=== PATIENT | female | born 1965 | race Caucasian/White ===

== ENCOUNTER 2017-07-10 11:28 | Emergency (ER) | payer BC ==
[~2017-07-10] VITALS: Ht 149.9 cm; Wt 72.6 kg
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
[2017-07-10 11:36] VITALS: BP 150/78
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
--- NOTE | 2017-07-10 11:53 | NUR ---
ambulatory to restroom with steady gait
--- NOTE | 2017-07-10 12:05 | NUR ---
pt to ct via wheelchair
--- NOTE | 2017-07-10 12:19 | NUR ---
returned from radiology
--- NOTE | 2017-07-10 13:08 | NUR ---
continues to denie pain, no headache or dizziness at this time---continues to wait for dispo
[2017-07-10 13:25] VITALS: BP 150/80
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
== END 2017-07-10 13:26 | disposition home or self-care (01) ==
LOC: MED 11:28
DX: R07.89 Other chest pain (principal); E78.00 Pure hypercholesterolemia, unspecified; R10.30 Lower abdominal pain, unspecified; V49.60XA Unspecified car occupant injured in collision with unspecified motor vehicles in traffic accident, initial encounter; Y93.89 Activity, other specified; Y92.488 Other paved roadways as the place of occurrence of the external cause; Y99.8 Other external cause status
CPT/HCPCS: 71046; 71250; 81002; 81025; 99284